=== PATIENT | female | born 1960 | race American Indian/Alaskan Native ===

== ENCOUNTER 2022-02-06 19:14 | Emergency (ER) | payer OTHER ==
[~2022-02-06] VITALS: Ht 157.5 cm; Wt 77.1 kg
[~2022-02-06 19:14] MED LIST: ALBU90OI61 INH; ASPI81EC PO; ATOR20 PO; CETI10 PO; CLIN150 PO; CLIN300 PO; CLON.5 PO; CLOP75 PO; CYCL10; CYCL10 PO; DILT360ER PO; FORM12IH; HYDPAM25; LEVSOD100; LEVSOD112 PO; LISI20 PO; METF500 PO; MOME220I INH; OMEP20ER; OMEP20ER PO; OXYACE5T; OXYB5; OXYC5 PO; POLY17UD PO; PSEU120ER; Percocet 5-3251 EACH PO; Peridex480 ML SS; RANI150; RISP1; VENL150ER PO; VENL75; ZOLM5; ZOLM5 PO; ZOLP5 PO
[2022-02-06] MEDS ORDERED: Cleocin HCl300 MG PO (22:46)
== END 2022-02-06 23:09 | disposition home or self-care (01) ==
LOC: ER 19:14
DX: L03.213 Periorbital cellulitis (principal); I10 Essential (primary) hypertension; J44.9 Chronic obstructive pulmonary disease, unspecified; E03.9 Hypothyroidism, unspecified; F17.200 Nicotine dependence, unspecified, uncomplicated; Z79.899 Other long term (current) drug therapy; Z79.82 Long term (current) use of aspirin; Z79.84 Long term (current) use of oral hypoglycemic drugs; Z88.2 Allergy status to sulfonamides; Z88.5 Allergy status to narcotic agent; Z88.6 Allergy status to analgesic agent; Z86.73 Personal history of transient ischemic attack (TIA), and cerebral infarction without residual deficits
CPT/HCPCS: A9270

== ENCOUNTER 2022-07-19 19:57 | Inpatient (IN) | payer OTHER ==
[~2022-07-19] VITALS: Ht 165.1 cm; Wt 66.0 kg
[~2022-07-19 19:57] MED LIST changes: +Cleocin HCl300 MG PO
[2022-07-19 21:19] LABS: BASOPHILS ABSOLUTE AUTO 0.09 K/mm3 (0.00-0.23); BASOPHILS PERCENT AUTO 1 % (0-2); EOSINOPHILS ABSOLUTE AUTO 0.42 K/mm3 (0.00-0.68); EOSINOPHILS PERCENT AUTO 4 % (0-6); Hemoglobin 13.2 g/dL (11.5-16.0); IMMATURE GRAN ABSOLUTE AUTO 0.04 K/mm3 (0.00-0.10); IMMATURE GRAN PERCENT AUTO 0 % (0-1); LYMPHOCYTES ABSOLUTE AUTO 3.58 K/mm3 (0.84-5.20); LYMPHOCYTES PERCENT AUTO 35 % (21-46); MONOCYTES PERCENT AUTO 7 % (4-13); Mean Corpuscular HGB 30.9 pg (26.0-34.0); Mean Corpuscular HGB Conc 34.7 g/dL (31.5-36.5); Mean Corpuscular Volume 89 fL (80-100); Mean Platelet Volume 11.3 fL (9.1-12.4); NEUTROPHILS ABSOLUTE AUTO 5.39 K/mm3 (1.96-9.15); NEUTROPHILS PERCENT AUTO 53 % (41-73); Platelet Count 395 K/mm3 (150-400); RDW Coefficient Variation 14.2 % (11.7-14.2); RDW Standard Deviation 45.6 fL (35.1-46.3); Red Blood Cell Count 4.27 M/mm3 (3.80-5.20); White Blood Cell Count 10.22 K/mm3 (4.00-11.30)
[2022-07-19 22:33] LABS: Albumin, Blood 3.7 g/dL (3.4-5.0); Albumin/Globulin Ratio 1.2 (0.8-1.8); Bilirubin, Total 0.2 mg/dL (0.1-1.0); Bun/Creatinine Ratio 23.1 (12.0-20.0); Calcium, Blood 8.8 mg/dL (8.5-10.1); Creatinine, Blood 0.74 mg/dL (0.40-1.00); Potassium, Blood 2.7 mmol/L (3.5-5.5); Total Protein, Blood 6.7 g/dL (6.4-8.2)
[2022-07-20 03:24] LABS: Hematocrit 37.5 % (33.0-51.0); Hemoglobin 12.9 g/dL (11.5-16.0); Mean Corpuscular HGB 30.6 pg (26.0-34.0); Mean Corpuscular HGB Conc 34.4 g/dL (31.5-36.5); Mean Corpuscular Volume 89 fL (80-100); Mean Platelet Volume 10.1 fL (9.1-12.4); Platelet Count 354 K/mm3 (150-400); RDW Coefficient Variation 14.1 % (11.7-14.2); RDW Standard Deviation 45.4 fL (35.1-46.3); Red Blood Cell Count 4.22 M/mm3 (3.80-5.20); White Blood Cell Count 13.15 K/mm3 (4.00-11.30)
[2022-07-20 03:40] LABS: Bun/Creatinine Ratio 24.3 (12.0-20.0); Creatinine, Blood 0.66 mg/dL (0.40-1.00); Potassium, Blood 3.7 mmol/L (3.5-5.5)
--- NOTE | 2022-07-20 06:25 | NUR ---
SHIFT SUMMARY: PT. CAME IN OVERNIGHT WITH ANGIOEDEMA FROM AN ALLERGIC REACTION TO LISINOPRIL. PT. HAD SEVERE THROAT SWELLING AND WAS HOARSE WHEN SHE TRIED TO TALK AND UNSAFE TO SWALLOW AT THE TIME OF ARRIVAL. SHE HAS MUCH IMPROVED INTO THE MORNING AND THE SWELLING HAS GONE DOWN SIGNIFICANTLY, PT. HAS ALSO PASSED A BEDSIDE SWALLOW TEST AND IS ABLE TO DRINK WELL TALK MORE APPROPRIATELY. HER VS HAVE REMAINED STABLE AND WNL THROUGHOUT THE NIGHT AND HER POTASSIUM WAS REPLACED WHEN SHE GOT HERE AND AM LABS SHOW HER LEVELS TO NOW BE WNL. PT. IS RESTING IN BED WITH CALL LIGHT IN REACH.
[2022-07-20 10:41] LABS: Source, Urine Clean Catch
[2022-07-20 10:56] LABS: Appearance, Urine Clear (Clear); Bilirubin, Urine Neg (Neg); Blood, Urine 4+ (Neg); Color, Urine Yellow (P-Yellow); Glucose Qualitative, Urine Neg (Neg); Ketones, Urine 2+ (Neg); Leukocyte Esterase, Urine Neg (Neg); Nitrite, Urine Neg (Neg); Protein, Urine 2+ (Neg); Specific Gravity, Urine 1.025 (1.003-1.022); Urobilinogen, Urine NORM (Normal)
[2022-07-20 11:12] LABS: Bacteria Mod /hpf; Mucus Light (0-Heavy); Squamous Epithelial Cells Mod /hpf (Few)
--- NOTE | 2022-07-20 11:14 | NUR ---
Spiritual Care Attempted Pt. is in bed and welcomes my visit. Friend or family member is present. Soon after connecting with Pt. Medical staff arrived. pt. agreed to have me return at a later time. We remain available to the Pt.
[2022-07-20] MEDS ORDERED: ASPI81CH PO (11:37)
[2022-07-20] MEDS ORDERED: ATORVASTATIN CA80 M1 PO (11:38)
[2022-07-20] MEDS ORDERED: CLON.5 PO (11:39)
[2022-07-20] MEDS ORDERED: DILTIAZEM 24HR240 M3 PO (11:40)
[2022-07-20] MEDS ORDERED: Glucophage 500 mg PO (11:42)
--- NOTE | 2022-07-20 12:05 | NUR ---
PT REPORTS FEELING NAUSEOUS, DR NOTIFIED, ZOFRAN ORDERED. WHILE PULLING ZOFRAN, PT BEGAN VOMITTING INTO EMISI BAG. ZOFRAN GIVEN PER ORDERS, WILL CONTINUE TO MONITOR.
--- NOTE | 2022-07-20 13:48 | NUR ---
THIS RN LOOKED OVER STUDENTS ASSESSMENT FROM THIS MORNING AND AGREES WITH HIS ASSESSMENT.
--- NOTE | 2022-07-20 14:49 | NUR ---
UPDATE PT CURRENTLY SLEEPING. NAUSEA APPEARS TO BE BETTER AFTER PT RECIEVED PHENERGAN PER EMAR. WILL CONTINUE TO MONITOR.
--- NOTE | 2022-07-20 17:03 | NUR ---
REPORT GIVEN TO BEENA RN AT 1645. BEENA TO ASSUME CARE OF PT.
--- NOTE | 2022-07-20 18:09 | NUR ---
Assumed care of pt at 1645 from Val[facility] STERLING. Pt voided into BSC with assistance from her visitor. States she feels that she has a UTI. On inquiring, pt states she often gets UTIs and her symptoms that she is currently experiencing are identical. Pt also states she has a headache. Pt reports excessive caffiene consumption on regular bases. Offered diet pepsi. Pt states she also takes extra strength tylenol for headaches. Pt is also actively vomiting. Zofran given and pt vomited even after medication administration. Call placed to Dr Avelar to notify. New orders received.
--- NOTE | 2022-07-20 18:26 | NUR ---
ATIVAN 0.5MG GIVEN PER MD FOR NAUSEA/VOMITING. PRIOR TO ATIVAN PT HAD 50CC EMESIS/BILE. TYLENOL TO BE HELD UNTIL N/V IMPROVED. ROCEPHIN TO BE GIVEN.
--- NOTE | 2022-07-21 01:25 | NUR ---
REPORT RECIEVED FROM MICHAEL SNAP ATTACHER AT 0120 AND AWAITING PT T/F TO ROOM 331.
--- NOTE | 2022-07-21 01:27 | NUR ---
PT. TRANSFERRED TO MEDICAL FLOOR WITH 2 CNAS.
--- NOTE | 2022-07-21 03:26 | NUR ---
T/F AND SUMMARY: PT T/F TO ROOM 331 VIA W/C AT 0132. SHE WAS ORIENTED TO NEW ROOM AND CALL SYSTEM AND THIS RN AGREES TO [employer] LEADER'S NOCTE SHIFT ASSESSMENT FINDINGS. SHE'S A/OX4 AND SPECIFIES NEEDS BUT HAS BED ALARM ON FOR FALL RISK AND POSSIBLE IMPULSIVITY. 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 PT USES CANES W/ARM BRACES BUT CAN PIVOT T/F TO BSC W/1PA. SHE REPORTED 10/10 HERBERT AND NAUSEA UPON ARRIVAL TO FLOOR W/SMALL AMT OF BIAL EMESIS OBSERVED IN BAG. PRN ZOFRAN AND TYLENOL RECIEVED FOR TOLERABLE RELIEF. PILLS WERE TOLERATED W/O ISSUES AND ASP PREC'S WERE MAINTAINED. NO ACTUE CHANGES, VSS AND AFEBRILE. TELEMETRY COMMENCED AND SHE WAS NSR/S.TACH AT 90'S-100'S BPM. PT IS POSSIBLE D/C TODAY. WCTM AND REPORT TO DAY RN.
[2022-07-21 05:31] LABS: Hematocrit 37.8 % (33.0-51.0); Hemoglobin 13.1 g/dL (11.5-16.0); Mean Corpuscular HGB 30.7 pg (26.0-34.0); Mean Corpuscular HGB Conc 34.7 g/dL (31.5-36.5); Mean Corpuscular Volume 89 fL (80-100); Mean Platelet Volume 10.7 fL (9.1-12.4); Platelet Count 342 K/mm3 (150-400); RDW Coefficient Variation 14.6 % (11.7-14.2); RDW Standard Deviation 46.5 fL (35.1-46.3); Red Blood Cell Count 4.27 M/mm3 (3.80-5.20); White Blood Cell Count 20.49 K/mm3 (4.00-11.30)
[2022-07-21 06:13] LABS: Albumin, Blood 3.9 g/dL (3.4-5.0); Albumin/Globulin Ratio 1.2 (0.8-1.8); Bilirubin, Total 0.4 mg/dL (0.1-1.0); Bun/Creatinine Ratio 32.4 (12.0-20.0); Calcium, Blood 9.5 mg/dL (8.5-10.1); Creatinine, Blood 0.62 mg/dL (0.40-1.00); Globulin, Blood 3.2 g/dL (2.2-4.0); Potassium, Blood 3.4 mmol/L (3.5-5.5); Thyroid Stimulating Hormone 0.158 uIU/mL (0.360-4.800); Total Protein, Blood 7.1 g/dL (6.4-8.2)
[2022-07-21] MEDS ORDERED: FAMO20 PO (15:55)
[2022-07-21] MEDS ORDERED: BENADRYL25 MG PO (15:55)
--- NOTE | 2022-07-21 17:53 | NUR ---
1630 DC HOME ORDERS RECEIVED. TELE DC'D. PIV DC'D WITH CATH TIP INTACT, NO REDNESS OR SWELLING NOTED. WAITING ON MD MED REC FOR HOME DC MEDS.
--- NOTE | 2022-07-21 18:45 | NUR ---
DC HOME WRITTEN AND VERBAL DC INSTRUCTIONS GIVEN TO PT WITH FAMILY AT BEDSIDE, GOOD UNDERSTANDING VERBALIZED BY ALL. ALL QUESTIONS & CONCERNS ANSWERED. PT OUT TO PRIVATE VEHICLE VIA W/C WITH ALL PERSONAL BELONGINGS.
== END 2022-07-21 18:43 | disposition home or self-care (01) | DRG 916 ==
LOC: ER 19:57 → ICUW 19:58 → MEDS 07-20 15:47 → ICUW 07-20 15:48 → MEDS 07-21 01:45
PROVIDERS: Internal Medicine; Student in an Organized Health Care Education/Training Program; ADMIT Internal Medicine
DX: T78.3XXA Angioneurotic edema, initial encounter (principal); T46.4X5A Adverse effect of angiotensin-converting-enzyme inhibitors, initial encounter; D72.829 Elevated white blood cell count, unspecified; E87.6 Hypokalemia; E11.9 Type 2 diabetes mellitus without complications; I10 Essential (primary) hypertension; E03.9 Hypothyroidism, unspecified; K21.9 Gastro-esophageal reflux disease without esophagitis; F43.10 Post-traumatic stress disorder, unspecified; F31.9 Bipolar disorder, unspecified; B96.20 Unspecified Escherichia coli [E. coli] as the cause of diseases classified elsewhere; J44.9 Chronic obstructive pulmonary disease, unspecified; G43.909 Migraine, unspecified, not intractable, without status migrainosus; I73.00 Raynaud's syndrome without gangrene; N39.3 Stress incontinence (female) (male); Z74.09 Other reduced mobility; F17.210 Nicotine dependence, cigarettes, uncomplicated; Z87.440 Personal history of urinary (tract) infections; Z23 Encounter for immunization; Z88.2 Allergy status to sulfonamides; Z88.5 Allergy status to narcotic agent; Z88.8 Allergy status to other drugs, medicaments and biological substances; Z79.51 Long term (current) use of inhaled steroids; Z79.811 Long term (current) use of aromatase inhibitors; Z79.82 Long term (current) use of aspirin; Z79.02 Long term (current) use of antithrombotics/antiplatelets; Z79.84 Long term (current) use of oral hypoglycemic drugs; Z79.899 Other long term (current) drug therapy; Z79.2 Long term (current) use of antibiotics; Z79.891 Long term (current) use of opiate analgesic; Z90.710 Acquired absence of both cervix and uterus; Z86.73 Personal history of transient ischemic attack (TIA), and cerebral infarction without residual deficits; Z90.49 Acquired absence of other specified parts of digestive tract; Z98.890 Other specified postprocedural states
CPT/HCPCS: 36415; 80048; 80053; 81001; 82947; 84443; 85025; 85027; 87077; 87086; 87186; 90686; 92610; 94644; 94660; 94664; 96365; 96366; 96375; 96376; A9270; G0008; G0378; J0171; J0360; J0696; J2060; J2405; J2550; J2930; J3480; J3490; J7050